=== PATIENT | male | born 1955 | race Caucasian/White ===

== ENCOUNTER → 2021-05-23 11:39 | Outpatient (CLI) | payer OTHER, SELFPAY ==
[2021-05-23 13:02] LABS: Alanine Aminotransferase 28 IU/L (<50); Albumin 4.3 g/dL (3.5-5.0); Albumin Globulin Ratio 1.6 (1.0-2.8); Alkaline Phosphatase 60 U/L (38-126); Aspartate Aminotransferase 43 IU/L (17-59); BUN Creatinine Ratio 18.1 (6-22); Bilirubin Total 0.5 mg/dL (0.2-1.3); Blood Urea Nitrogen 17 mg/dL (9-20); Calcium 9.4 mg/dL (8.4-10.2); Carbon Dioxide 29 mmol/L (22-32); Chloride 110 mmol/L (98-107); Cholesterol 230 mg/dL (140-199); Estimated Glomerular Filt Rate > 60.0 mL/min (>60); Globulin 2.7 g/dL (1.7-4.1); Glucose 109 mg/dL (80-110); HDL Cholesterol 59 mg/dL (40-60); HEMOLYSIS < 15 (0-50); LDL Cholesterol Calculated 153 mg/dL (<100); Potassium 4.2 mmol/L (3.4-5.1); Sodium 142 mmol/L (137-145); Triglycerides 90 mg/dL (35-150)
== END ==
PROVIDERS: PCP Family Medicine; Referring Provider Family Medicine; Visit Provider Family Medicine
DX: Z00.00 Encounter for general adult medical examination without abnormal findings (principal)
CPT/HCPCS: 36415; 80053; 80061

== ENCOUNTER 2021-06-21 01:16 | Emergency (ER) | payer OTHER, SELFPAY ==
[2021-06-21] VITALS (24 sets, daily range): BP systolic 139–179; BP diastolic 64–82; PULSE 45–57; RESP 10–24; TEMP 36.2; O2SAT 91–100; BMI 25.0
--- NOTE | 2021-06-21 01:40 | DI.RAD.S_ITS ---
PROCEDURE: XR CHEST 1V INDICATIONS: chest pain. TECHNIQUE: One view of the chest was acquired. COMPARISON: None. FINDINGS: Surgical changes and devices: None. Lungs and pleura: Lungs are clear. No pleural effusions or pneumothorax. Mediastinum: Mediastinal contours appear normal. Heart size is normal. Bones and chest wall: No suspicious bony lesions. Overlying soft tissues appear unremarkable. Degenerative changes are noted in the included portions of the spine. 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 IMPRESSION: No acute cardiopulmonary abnormality. Dictated by: Ronaldo Santana M.D. on 06/21/2021 at 2:03 Approved by: Ronaldo Santana M.D. on 06/21/2021 at 2:04
[2021-06-21 01:52] LABS: Add Manual Diff / Slide Review NO; Basophils Absolute Auto 100 /uL (0-100); Eosinophils Absolute Auto 200 /uL (0-450); Eosinophils Percent Auto 2.7 % (2-4); Hematocrit 47.8 % (41-53); Hemoglobin 15.5 g/dL (13.5-17.5); Lymphocytes Absolute Auto 2800 /uL (1100-4500); Lymphocytes Percent Auto 37.8 % (25-40); Mean Corpuscular HGB Conc 32.5 % (30-36); Mean Corpuscular Hemoglobin 30.5 PG (26-34); Mean Corpuscular Volume 93.9 fL (80-100); Monocytes Absolute Auto 600 /uL (0-900); Monocytes Percent Auto 7.8 % (3-14); Neutrophils Absolute Auto 3800 /uL (1500-7000); Neutrophils Percent Auto 50.7 % (50-75); Platelet Count 209 X10^3/uL (150-400); Red Blood Cell Count 5.09 X10^6/uL (4.5-5.9); Red Cell Distribution Width 13.6 % (11.6-14.8); White Blood Cell Count 7.5 X10^3/uL (4.5-11.0)
[2021-06-21 01:57] LABS: Alanine Aminotransferase 24 IU/L (<50); Albumin 4.6 g/dL (3.5-5.0); Albumin Globulin Ratio 1.6 (1.0-2.8); Alkaline Phosphatase 69 U/L (38-126); Aspartate Aminotransferase 37 IU/L (17-59); BUN Creatinine Ratio 16.3 (6-22); Bilirubin Total 0.3 mg/dL (0.2-1.3); Blood Urea Nitrogen 16 mg/dL (9-20); Calcium 9.6 mg/dL (8.4-10.2); Carbon Dioxide 29 mmol/L (22-32); Chloride 106 mmol/L (98-107); Creatine Kinase 164 U/L (55-170); Estimated Glomerular Filt Rate > 60.0 mL/min (>60); Globulin 2.9 g/dL (1.7-4.1); Glucose 93 mg/dL (80-110); Lipase 102 U/L (23-300); Potassium 3.8 mmol/L (3.4-5.1); Sodium 143 mmol/L (137-145); Total Protein 7.5 g/dL (6.3-8.2)
[2021-06-21 02:09] LABS: Troponin I < 0.012 ng/mL (0.01-0.034)
[2021-06-21 02:12] LABS: CKMB % Relative Index 2.2 % (1.5-5.0); Creatine Kinase MB 3.54 ng/mL (<2.37); HEMOLYSIS < 15 (0-50)
--- NOTE | 2021-06-21 02:39 | ED_ITS ---
HPI - Chest Pain <Sharri Vsaquez MD - Last Filed: 06/22/21 02:02> General Chief Complaint: Chest Pain Stated Complaint: chest pain Time Seen by Provider: 06/21/21 01:27 Source: patient Mode of arrival: Ambulatory Limitations: no limitations History of Present Illness HPI narrative: 65-year-old gentleman with a history of mild tremor presents after experiencing a couple of minutes of chest pain at 1:00 p.m. this evening. Describes it as a pressure tightness under his sternum rated a 5 to 6/10 with pain radiating down both arms. No nausea, dyspnea or diaphoresis. Describes it is a burning achy type pain and was initially concerned that it was simply indigestion. Had been sitting and watching TV the time of onset. In getting dressed and ready in into the ER he did not notice recurrent pain. He describes no recent fever, cough, chills. No abdominal pain vomiting or diarrhea. He has not been having exertional dyspnea or orthopnea and describes no other exertional abnormalities. Related Data Allergies Allergy/AdvReac Type Severity Reaction Status Date / Time No Known Drug Allergies Allergy Verified 06/21/21 01:40 Review of Systems <Sharri Vasquez MD - Last Filed: 06/22/21 02:02> Review of Systems Narrative: Remainder of complete review of systems is otherwise unremarkable except for that included in the HPI. Patient History <Sharri Vasquez MD - Last Filed: 06/22/21 02:02> Social History Smoking Status: Former smoker Smoking Status: Former smoker alcohol intake frequency: 0-2 drinks per day Alcohol type: wine Substance Use Type: marijuana Exam <Sharri Vasquez MD - Last Filed: 06/22/21 02:02> Narrative Exam Narrative: General: Healthy appearing, in no acute distress. Able to give a complete and coherent history. Well-nourished well-developed HEENT: Moist mucous membranes, normal sclera with reactive pupils, Neck: No JVD, supple Respiratory: Lungs are clear to auscultation, no wheezing no rales no rhonchi. Full and symmetrical air movement Cardiac: Regular rate and rhythm no murmurs no bruits Abdomen: Soft, nontender, good bowel tones, no flank pain Skin: Warm and dry, no rashes Neurologic: Grossly neurologically intact with no obvious asymmetries or abnormalities Extremities: No trauma, well perfused Psych: Cooperative, appropriate insight and affect Initial Vital Signs Initial Vital Signs: Vital Signs Temperature 97.1 F L 06/21/21 01:18 Pulse Rate 55 L 06/21/21 01:18 Respiratory Rate 21 06/21/21 01:18 Blood Pressure 173/81 H 06/21/21 01:18 Pulse Oximetry 97 06/21/21 01:18 <Meek Delgadillo DO - Last Filed: 06/21/21 08:33> Initial Vital Signs Initial Vital Signs: Vital Signs Temperature 97.1 F L 06/21/21 01:18 Pulse Rate 55 L 06/21/21 01:18 Respiratory Rate 06/21/21 01:18 Blood Pressure 173/81 H 06/21/21 01:18 Pulse Oximetry 97 06/21/21 01:18 Course <Sharri Vasquez MD - Last Filed: 06/22/21 02:02> Orders Ordered: Discontinued Medications Aspirin (Aspirin 81 Mg Chew Tab) 324 mg PO NOW ONE Stop: 06/21/21 04:36 Last Admin: 06/21/21 04:42 Dose: 324 mg Documented by: JARON Heparin Sodium (Porcine) (Heparin 5,000 Unit/Ml Vial) 5,000 unit IV NOW ONE Stop: 06/21/21 04:36 Last Admin: 06/21/21 04:41 Dose: 5,000 unit Documented by: JARON Heparin Sodium/Dextrose (Heparin Drip) 25,000 unit in 500 mls @ 20.684 mls/hr IV CONT MARC; Protocol Last Titration: 06/21/21 09:06 Dose: 0 units/kg/hr, 0 mls/hr Documented by: Admin: 06/21/21 04:41 Dose: 12 units/kg/hr, 20.684 mls/hr Documented by: JARON Vital Signs Vital signs: Vital Signs - 8 hr 06/21/21 01:18 06/21/21 01:26 06/21/21 01:30 Temperature 97.1 F L Pulse Rate 55 L 52 L 52 L Respiratory Rate 21 23 22 Blood Pressure 173/81 H Pulse Oximetry 97 100 99 06/21/21 01:31 06/21/21 02:00 06/21/21 02:30 Temperature Pulse Rate 53 L 55 L 52 L Respiratory Rate 17 18 13 Blood Pressure 158/78 H 139/71 155/76 H Pulse Oximetry 99 94 95 06/21/21 03:00 06/21/21 03:01 06/21/21 03:30 Temperature Pulse Rate 49 L 50 L 49 L Respiratory Rate 24 20 Blood Pressure 141/74 H Pulse Oximetry 94 95 95 06/21/21 03:31 06/21/21 04:00 06/21/21 04:30 Temperature Pulse Rate 51 L 47 L 45 L Respiratory Rate 17 15 10 L Blood Pressure 142/71 H 148/75 H 156/82 H Pulse Oximetry 95 95 95 06/21/21 05:00 06/21/21 05:30 06/21/21 06:00 Temperature Pulse Rate 55 L 53 L 53 L Respiratory Rate 20 14 Blood Pressure 179/82 H 150/77 H 160/75 H Pulse Oximetry 97 95 96 06/21/21 06:30 06/21/21 06:31 06/21/21 07:00 Temperature Pulse Rate 51 L 53 L 53 L Respiratory Rate 17 12 Blood Pressure 161/76 H Pulse Oximetry 96 96 94 06/21/21 07:01 06/21/21 07:30 06/21/21 07:31 Temperature Pulse Rate 52 L 52 L 52 L Respiratory Rate 13 12 14 Blood Pressure 161/80 H 157/73 H Pulse Oximetry 95 95 95 06/21/21 08:00 Temperature Pulse Rate 54 L Respiratory Rate 13 Blood Pressure 139/64 Pulse Oximetry 91 <Meek Delgadillo DO - Last Filed: 06/21/21 08:33> Orders Ordered: Discontinued Medications Aspirin (Aspirin 81 Mg Chew Tab) 324 mg PO NOW ONE Stop: 06/21/21 04:36 Last Admin: 06/21/21 04:42 Dose: 324 mg Documented by: JARON Heparin Sodium (Porcine) (Heparin 5,000 Unit/Ml Vial) 5,000 unit IV NOW ONE Stop: 06/21/21 04:36 Last Admin: 06/21/21 04:41 Dose: 5,000 unit Documented by: JARON Heparin Sodium/Dextrose (Heparin Drip) 25,000 unit in 500 mls @ 20.684 mls/hr IV CONT MARC; Protocol Last Titration: 06/21/21 09:06 Dose: 0 units/kg/hr, 0 mls/hr Documented by: Admin: 06/21/21 04:41 Dose: 12 units/kg/hr, 20.684 mls/hr Documented by: JARON Vital Signs Vital signs: Vital Signs - 8 hr 06/21/21 01:18 06/21/21 01:26 06/21/21 01:30 Temperature 97.1 F L Pulse Rate 55 L 52 L 52 L Respiratory Rate 21 23 22 Blood Pressure 173/81 H Pulse Oximetry 97 100 99 06/21/21 01:31 06/21/21 02:00 06/21/21 02:30 Temperature Pulse Rate 53 L 55 L 52 L Respiratory Rate 17 18 13 Blood Pressure 158/78 H 139/71 155/76 H Pulse Oximetry 99 94 95 06/21/21 03:00 06/21/21 03:01 06/21/21 03:30 Temperature Pulse Rate 49 L 50 L 49 L Respiratory Rate 24 20 Blood Pressure 141/74 H Pulse Oximetry 94 95 95 06/21/21 03:31 06/21/21 04:00 06/21/21 04:30 Temperature Pulse Rate 51 L 47 L 45 L Respiratory Rate 17 15 10 L Blood Pressure 142/71 H 148/75 H 156/82 H Pulse Oximetry 95 95 95 06/21/21 05:00 06/21/21 05:30 06/21/21 06:00 Temperature Pulse Rate 55 L 53 L 53 L Respiratory Rate 20 14 Blood Pressure 179/82 H 150/77 H 160/75 H Pulse Oximetry 97 95 96 06/21/21 06:30 06/21/21 06:31 06/21/21 07:00 Temperature Pulse Rate 51 L 53 L 53 L Respiratory Rate 17 12 Blood Pressure 161/76 H Pulse Oximetry 96 96 94 06/21/21 07:01 06/21/21 07:30 06/21/21 07:31 Temperature Pulse Rate 52 L 52 L 52 L Respiratory Rate 13 12 14 Blood Pressure 161/80 H 157/73 H Pulse Oximetry 95 95 95 06/21/21 08:00 Temperature Pulse Rate 54 L Respiratory Rate 13 Blood Pressure 139/64 Pulse Oximetry 91 MDM - Chest Pain <Sharri L MD Christina - Last Filed: 06/22/21 02:02> Lab Data Result diagrams: 06/21/21 01:30 06/21/21 01:30 Labs: Lab Results 06/21/21 06/21/21 06/21/21 Range/Units 01:30 01:30 01:30 WBC 7.5 (4.5-11.0) X10^3/uL RBC 5.09 (4.5-5.9) X10^6/uL Hgb 15.5 (13.5-17.5) g/dL Hct 47.8 (41-53) % MCV 93.9 (80-100) fL MCH 30.5 (26-34) PG MCHC 32.5 (30-36) % RDW 13.6 (11.6-14.8) % Plt Count 209 (150-400) X10^3/uL Neut % (Auto) 50.7 (50-75) % Lymph % (Auto) 37.8 (25-40) % [place] % (Auto) 7.8 (3-14) % Eos % (Auto) 2.7 (2-4) % Baso % (Auto) 1.0 (0-2) % Neut # (Auto) 3800 (9693-2337) /uL Lymph # (Auto) 2800 (9685-8645) /uL [place] # (Auto) 600 (0-900) /uL Eos # (Auto) 200 (0-450) /uL Baso # (Auto) 100 (0-100) /uL PT 10.2 (10.1-12.7) SECONDS INR 0.9 (0.9-1.3) APTT 35 (26.4-36.2) SECONDS Sodium 143 (137-145) mmol/L Potassium 3.8 (3.4-5.1) mmol/L Chloride 106 (98-107) mmol/L Carbon Dioxide 29 (22-32) mmol/L BUN 16 (9-20) mg/dL Creatinine 0.98 (0.66-1.25) mg/dL Estimated GFR > 60.0 (>60) mL/min BUN/Creatinine Ratio 16.3 (6-22) Glucose 93 (80-110) mg/dL Calcium 9.6 (8.4-10.2) mg/dL Total Bilirubin 0.3 (0.2-1.3) mg/dL AST 37 (17-59) IU/L ALT 24 (<50) IU/L Alkaline Phosphatase 69 (38-126) U/L Total Creatine Kinase 164 (55-170) U/L CK-MB (CK-2) 3.54 H (<2.37) ng/mL CK-MB (CK-2) Rel Index 2.2 (1.5-5.0) % Troponin I < 0.012 (0.01-0.034) ng/mL Total Protein 7.5 (6.3-8.2) g/dL Albumin 4.6 (3.5-5.0) g/dL Globulin 2.9 (1.7-4.1) g/dL Albumin/Globulin Ratio 1.6 (1.0-2.8) Lipase 102 (23-300) U/L SARS-CoV-2 (PCR) (Negative) 06/21/21 06/21/21 Range/Units 03:40 04:52 WBC (4.5-11.0) X10^3/uL RBC (4.5-5.9) X10^6/uL Hgb (13.5-17.5) g/dL Hct (41-53) % MCV (80-100) fL MCH (26-34) PG MCHC (30-36) % RDW (11.6-14.8) % Plt Count (150-400) X10^3/uL Neut % (Auto) (50-75) % Lymph % (Auto) (25-40) % [place] % (Auto) (3-14) % Eos % (Auto) (2-4) % Baso % (Auto) (0-2) % Neut # (Auto) (2677-8407) /uL Lymph # (Auto) (0307-3422) /uL [place] # (Auto) (0-900) /uL Eos # (Auto) (0-450) /uL Baso # (Auto) (0-100) /uL PT (10.1-12.7) SECONDS INR (0.9-1.3) APTT (26.4-36.2) SECONDS Sodium (137-145) mmol/L Potassium (3.4-5.1) mmol/L Chloride (98-107) mmol/L Carbon Dioxide (22-32) mmol/L BUN (9-20) mg/dL Creatinine (0.66-1.25) mg/dL Estimated GFR (>60) mL/min BUN/Creatinine Ratio (6-22) Glucose (80-110) mg/dL Calcium (8.4-10.2) mg/dL Total Bilirubin (0.2-1.3) mg/dL AST (17-59) IU/L ALT (<50) IU/L Alkaline Phosphatase (38-126) U/L Total Creatine Kinase (55-170) U/L CK-MB (CK-2) (<2.37) ng/mL CK-MB (CK-2) Rel Index (1.5-5.0) % Troponin I 0.186 H* (0.01-0.034) ng/mL Total Protein (6.3-8.2) g/dL Albumin (3.5-5.0) g/dL Globulin (1.7-4.1) g/dL Albumin/Globulin Ratio (1.0-2.8) Lipase (23-300) U/L SARS-CoV-2 (PCR) Negative (Negative) ECG Data Interpretation: 1:22am Sinus bradycardia at a rate of 53 Normal intervals, normal axis No acute ischemic changes 4:40 am Sinus Deepak at a rate of 46 Normal intervals, normal axis No acute ischemic changes MDM Narrative Medical decision making narrative: 65-year-old gentleman with no prior history of cardiac disease or stroke presents with brief episode of substernal chest pain more severe than prior episodes of indigestion and associated with no nausea shortness of breath or diaphoresis. Workup is notable for normal initial troponin drawn approximately 30 minutes after event and repeat troponin at 2hours increasing to 0.186. Initial EKG does not suggest any acute ischemic findings. Follow-up EKG shows He had been pain-free since prior to arrival in the emergency department. He has remained pain-free throughout his emergency department stay. Heparin is sstarted with return of 2nd trop, showing significant elevation. 4:50am Reviewed with Dr Myers, cardiology. Agrees with transfer to [facility] with anticipation of heart cath today as well as heparin gtt. Per nursing supervisior, beds will be available at [facility] ([facility] hours). <Meek Delgadillo, - Last Filed: 06/21/21 08:33> Lab Data Labs: Lab Results 06/21/21 06/21/21 06/21/21 Range/Units 01:30 01:30 01:30 WBC 7.5 (4.5-11.0) X10^3/uL RBC 5.09 (4.5-5.9) X10^6/uL Hgb 15.5 (13.5-17.5) g/dL Hct 47.8 (41-53) % MCV 93.9 (80-100) fL MCH 30.5 (26-34) PG MCHC 32.5 (30-36) % RDW 13.6 (11.6-14.8) % Plt Count 209 (150-400) X10^3/uL Neut % (Auto) 50.7 (50-75) % Lymph % (Auto) 37.8 (25-40) % [place] % (Auto) 7.8 (3-14) % Eos % (Auto) 2.7 (2-4) % Baso % (Auto) 1.0 (0-2) % Neut # (Auto) 3800 (3320-7346) /uL Lymph # (Auto) 2800 (9180-7568) /uL [place] # (Auto) 600 (0-900) /uL Eos # (Auto) 200 (0-450) /uL Baso # (Auto) 100 (0-100) /uL PT 10.2 (10.1-12.7) SECONDS INR 0.9 (0.9-1.3) APTT 35 (26.4-36.2) SECONDS Sodium 143 (137-145) mmol/L Potassium 3.8 (3.4-5.1) mmol/L Chloride 106 (98-107) mmol/L Carbon Dioxide 29 (22-32) mmol/L BUN 16 (9-20) mg/dL Creatinine 0.98 (0.66-1.25) mg/dL Estimated GFR > 60.0 (>60) mL/min BUN/Creatinine Ratio 16.3 (6-22) Glucose 93 (80-110) mg/dL Calcium 9.6 (8.4-10.2) mg/dL Total Bilirubin 0.3 (0.2-1.3) mg/dL AST 37 (17-59) IU/L ALT 24 (<50) IU/L Alkaline Phosphatase 69 (38-126) U/L Total Creatine Kinase 164 (55-170) U/L CK-MB (CK-2) 3.54 H (<2.37) ng/mL CK-MB (CK-2) Rel Index 2.2 (1.5-5.0) % Troponin I < 0.012 (0.01-0.034) ng/mL Total Protein 7.5 (6.3-8.2) g/dL Albumin 4.6 (3.5-5.0) g/dL Globulin 2.9 (1.7-4.1) g/dL Albumin/Globulin Ratio 1.6 (1.0-2.8) Lipase 102 (23-300) U/L SARS-CoV-2 (PCR) (Negative) 06/21/21 06/21/21 Range/Units 03:40 04:52 WBC (4.5-11.0) X10^3/uL RBC (4.5-5.9) X10^6/uL Hgb (13.5-17.5) g/dL Hct (41-53) % MCV (80-100) fL MCH (26-34) PG MCHC (30-36) % RDW (11.6-14.8) % Plt Count (150-400) X10^3/uL Neut % (Auto) (50-75) % Lymph % (Auto) (25-40) % [place] % (Auto) (3-14) % Eos % (Auto) (2-4) % Baso % (Auto) (0-2) % Neut # (Auto) (0656-7752) /uL Lymph # (Auto) (5436-2462) /uL [place] # (Auto) (0-900) /uL Eos # (Auto) (0-450) /uL Baso # (Auto) (0-100) /uL PT (10.1-12.7) SECONDS INR (0.9-1.3) APTT (26.4-36.2) SECONDS Sodium (137-145) mmol/L Potassium (3.4-5.1) mmol/L Chloride (98-107) mmol/L Carbon Dioxide (22-32) mmol/L BUN (9-20) mg/dL Creatinine (0.66-1.25) mg/dL Estimated GFR (>60) mL/min BUN/Creatinine Ratio (6-22) Glucose (80-110) mg/dL Calcium (8.4-10.2) mg/dL Total Bilirubin (0.2-1.3) mg/dL AST (17-59) IU/L ALT (<50) IU/L Alkaline Phosphatase (38-126) U/L Total Creatine Kinase (55-170) U/L CK-MB (CK-2) (<2.37) ng/mL CK-MB (CK-2) Rel Index (1.5-5.0) % Troponin I 0.186 H* (0.01-0.034) ng/mL Total Protein (6.3-8.2) g/dL Albumin (3.5-5.0) g/dL Globulin (1.7-4.1) g/dL Albumin/Globulin Ratio (1.0-2.8) Lipase (23-300) U/L SARS-CoV-2 (PCR) Negative (Negative) MDM Narrative Medical decision making narrative: 65-year-old gentleman with no prior history of cardiac disease or stroke presents with brief episode of substernal chest pain more severe than prior episodes of indigestion and associated with no nausea shortness of breath or diaphoresis. Workup is notable for normal initial troponin drawn approximately 30 minutes after event and repeat troponin at 2hours increasing to 0.186. Initial EKG does not suggest any acute ischemic findings. Follow-up EKG shows He had been pain-free since prior to arrival in the emergency department. He has remained pain-free throughout his emergency department stay. Heparin is sstarted with return of 2nd trop, showing significant elevation. 4:50am Reviewed with Dr Myers, cardiology. Agrees with transfer to [facility] with anticipation of heart cath today as well as heparin gtt. Per nursing supervisior, beds will be available at [facility] ([address] Delgadillo: Received turned over. Reviewed patient's history and physical exam. Patient has been accepted at [facility]. We did receive a bed assignment this morning. Transport arranged. Patient aware. Patient is currently stable for transfer. Discharge Plan Departure Patient Disposition: [facility] Clinical Impression: Acute non-ST elevation myocardial infarction (NSTEMI) Referrals: Cameron Davis, [Primary Care Provider] -
[2021-06-21 04:33] LABS: Troponin I 0.186 ng/mL (0.01-0.034)
[2021-06-21] MEDS: HEPARIN 5,000 UNIT/ML VIAL 5000 UNIT IV (04:41)
[2021-06-21] MEDS: HEPARIN DRIP 25,000 UNIT/500 ML IV.SOLN 20.684 UNIT IV (04:41)
[2021-06-21] MEDS: ASPIRIN 81 MG CHEW TAB 324 MG PO (04:42)
[2021-06-21 04:51] LABS: INR 0.9 (0.9-1.3); Prothrombin Time 10.2 SECONDS (10.1-12.7)
[2021-06-21 04:53] LABS: PTT Partial Thromboplastin Tim 35 SECONDS (26.4-36.2)
[2021-06-21 05:12] LABS: COVID19 -Nasal RAPID Negative (Negative)
== END 2021-06-21 09:06 | disposition short-term general hospital (02) ==
PROVIDERS: Emergency Medicine; Emergency Provider Emergency Medicine; PCP Family Medicine
DX: I21.4 Non-ST elevation (NSTEMI) myocardial infarction (principal); Z87.891 Personal history of nicotine dependence; Z20.822 Contact with and (suspected) exposure to COVID-19
CPT/HCPCS: 36415; 71045; 80053; 82550; 82553; 83690; 84484; 85025; 85610; 85730; 87635; 93005; 93010; 96365; 96366; 96375; 99285; C9803; J1644

== ENCOUNTER → 2024-02-11 11:01 | Outpatient (CLI) | payer MEDICARE, OTHER, SELFPAY ==
[2024-02-11 12:52] LABS: Add Manual Diff / Slide Review NO; Basophils Absolute Auto 0 /uL (0-100); Basophils Percent Auto 0.9 % (0-2); Eosinophils Absolute Auto 100 /uL (0-450); Eosinophils Percent Auto 1.5 % (2-4); Hemoglobin 15.1 g/dL (13.5-17.5); Lymphocytes Absolute Auto 1400 /uL (1100-4500); Lymphocytes Percent Auto 25.3 % (25-40); Mean Corpuscular HGB Conc 33.6 % (30-36); Mean Corpuscular Hemoglobin 31.3 PG (26-34); Monocytes Absolute Auto 400 /uL (0-900); Monocytes Percent Auto 6.9 % (3-14); Neutrophils Absolute Auto 3500 /uL (1500-7000); Neutrophils Percent Auto 65.4 % (50-75); Platelet Count 221 X10^3/uL (150-400); Red Blood Cell Count 4.84 X10^6/uL (4.5-5.9); Red Cell Distribution Width 13.8 % (11.6-14.8); White Blood Cell Count 5.4 X10^3/uL (4.5-11.0)
[2024-02-11 13:33] LABS: HEMOLYSIS < 15 (0-50)
[2024-02-11 13:54] LABS: Prostate Specific Antigen 3.93 ng/mL (0.10-4.00)
[2024-02-11 14:02] LABS: Alanine Aminotransferase 27 IU/L (<50); Albumin 4.4 g/dL (3.5-5.0); Albumin Globulin Ratio 1.8 (1.0-2.8); Alkaline Phosphatase 63 U/L (38-126); Aspartate Aminotransferase 41 IU/L (17-59); BUN Creatinine Ratio 15.8 (6-22); Bilirubin Total 0.8 mg/dL (0.2-1.3); Blood Urea Nitrogen 16 mg/dL (9-20); Calcium 8.9 mg/dL (8.4-10.2); Carbon Dioxide 26 mmol/L (22-32); Chloride 107 mmol/L (98-107); Cholesterol 242 mg/dL (140-199); Estimated Glomerular Filt Rate > 60 mL/min (>60); Globulin 2.4 g/dL (1.7-4.1); Glucose 107 mg/dL (80-110); HDL Cholesterol 66 mg/dL (40-60); LDL Cholesterol Calculated 163 mg/dL (<100); Sodium 138 mmol/L (137-145); Total Protein 6.8 g/dL (6.3-8.2); Triglycerides 67 mg/dL (35-150)
[2024-02-11 19:01] LABS: Hep C Virus Ab w/Reflex Quant NEGATIVE s/c (NEGATIVE)
== END ==
PROVIDERS: PCP Family Medicine; Referring Provider Family Medicine; Visit Provider Family Medicine
DX: Z11.59 Encounter for screening for other viral diseases (principal); E78.5 Hyperlipidemia, unspecified; Z13.220 Encounter for screening for lipoid disorders; Z13.9 Encounter for screening, unspecified; Z12.5 Encounter for screening for malignant neoplasm of prostate; E87.8 Other disorders of electrolyte and fluid balance, not elsewhere classified; D64.9 Anemia, unspecified
CPT/HCPCS: 36415; 80053; 80061; 84153; 85025; 86803; G0103

== ENCOUNTER → 2024-03-28 12:12 | Outpatient (CLI) | payer MEDICARE, OTHER, SELFPAY ==
--- NOTE | 2024-03-28 12:15 | DI.US.S_ITS ---
PROCEDURE: US ABD AORTA ANEURYSM SCREEN INDICATIONS: Personal history of nicotine dependence TECHNIQUE: Real time scanning was performed of the aorta and iliac arteries, with image documentation. COMPARISON: None. FINDINGS: Aorta: Proximal aortic diameter measures 1.8 cm. Mid-aorta measures 1.9 cm. Distal aortic diameter is 1.8 cm. Iliac arteries: Right common iliac artery measures 1.2 cm. Left common iliac artery measures 1.1 cm. IMPRESSION: Negative for aneurysm. Dictated by: Meño Ritchie M.D. on 03/28/2024 at 12:06 Approved by: Meño Ritchie M.D. on 03/28/2024 at 12:06
== END ==
PROVIDERS: PCP Family Medicine; Referring Provider Family Medicine; Visit Provider Family Medicine
DX: Z87.891 Personal history of nicotine dependence (principal); Z13.6 Encounter for screening for cardiovascular disorders
CPT/HCPCS: 76706

== ENCOUNTER → 2025-08-24 13:30 | Outpatient (CLI) | payer MEDICARE, OTHER, SELFPAY ==
--- NOTE | 2025-08-24 14:11 | EKG_ITS ---
[address] [address] [address] [address] Test Date: 2025-08-24 Pat Name: Almas Ritchie Department: Room: Gender: Male Director Of Valuation: : 1955 Requested By: Order Number: [id number] Reading MD: Matthieu Munroe MD Measurements Intervals [place] Rate: 46 P: 37 OK: 184 QRS: 24 QRSD: 98 T: 48 QT: 466 QTc: 407 Interpretive Statements Sinus bradycardia Electronically Signed On 08-25-2025 7:41:47 PST by Matthieu Munroe MD
[2025-08-24 14:31] LABS: Add Manual Diff / Slide Review NO; Hematocrit 45.1 % (41-53); Hemoglobin 15.3 g/dL (13.5-17.5); Lymphocytes Absolute Auto 1700 /uL (1100-4500); Mean Corpuscular HGB Conc 33.9 % (30-36); Mean Corpuscular Hemoglobin 31.0 PG (26-34); Mean Corpuscular Volume 91.3 fL (80-100); Platelet Count 213 X10^3/uL (150-400)
[2025-08-24 14:44] LABS: Hemoglobin A1C% w Est Avg Glu 5.4 % (4.0-6.0)
[2025-08-24 15:12] LABS: Albumin 4.7 g/dL (3.5-5.0); Blood Urea Nitrogen 15 mg/dL (9-20); Calcium 10.1 mg/dL (8.4-10.2); Carbon Dioxide 30 mmol/L (22-32); Chloride 105 mmol/L (98-107); Estimated Glomerular Filt Rate > 60 mL/min (>60); Glucose 80 mg/dL (70-99); HEMOLYSIS < 15 (0-50); Potassium 4.8 mmol/L (3.4-5.1); Sodium 142 mmol/L (137-145)
[2025-08-24 15:22] LABS: Prealbumin 29.9 mg/dL (17.6-36.0)
[2025-08-24 15:29] LABS: Vitamin D 25 Hydroxy (D3) 46.8 ng/mL (30.0-100.0)
== END ==
PROVIDERS: PCP Family Medicine; Referring Provider Orthopaedic Surgery Adult Reconstructive Orthopaedic Surgery; Visit Provider Orthopaedic Surgery Adult Reconstructive Orthopaedic Surgery
DX: Z01.818 Encounter for other preprocedural examination (principal); R73.09 Other abnormal glucose; E55.9 Vitamin D deficiency, unspecified
CPT/HCPCS: 36415; 80048; 82040; 82306; 83036; 84134; 85025; 93005